=== PATIENT | male | born 1970 | race African-American/Black ===

== ENCOUNTER 2020-08-10 14:50 | Emergency (ER) | payer OTHER ==
[2020-08-10 15:04] VITALS: BP 203/115; PULSE 94; BMI 37.3
[2020-08-10] MEDS ORDERED: IBUPROFEN 600 MG TABLET (FP) PO ONE ×2 (15:28→15:29)
== END 2020-08-10 16:20 | disposition home or self-care (01) ==
LOC: JERFT 14:50
DX: S60.221A Contusion of right hand, initial encounter (principal)
CPT/HCPCS: 73130-TC-RT-FY; 99283-25